=== PATIENT | female | born 1970 | race Caucasian/White ===

== ENCOUNTER → 2021-01-21 | Outpatient (CLI) | payer MEDICAID ==
--- NOTE | 2021-01-22 12:27 | MM ---
Reason for exam: screening (asymptomatic). Last mammogram was performed 15 years and 1 month ago. Physical Findings: A clinical breast exam by your physician is recommended on an annual basis and results should be correlated with mammographic findings. MG Screening Mammo w CAD Bilateral CC and MLO view(s) were taken. No prior studies available for comparison. There are scattered fibroglandular densities. There is no discrete abnormality. ASSESSMENT: Benign, BI-RAD 2 RECOMMENDATION: Routine screening mammogram of both breasts in 1 year.
== END | disposition home or self-care (01) ==
LOC: RADMAMWWP 10:46
PROVIDERS: ATTEND Family Medicine
DX: Z12.39 Encounter for other screening for malignant neoplasm of breast (principal)
CPT/HCPCS: 77067

== ENCOUNTER → 2021-08-05 | Outpatient (CLI) | payer MEDICAID ==
--- NOTE | 2021-08-05 21:55 | US ---
EXAMINATION TYPE: US transvaginal DATE OF EXAM: 08/05/2021 COMPARISON: NONE CLINICAL HISTORY: R10.2 PELVIC PAIN. on and off pelvic pain when moving in certain positions, TECHNIQUE: TV. Transvaginal sonographic images Date of LMP: 08/05/2021 EXAM MEASUREMENTS: Uterus: 11.5 x 7.8 x 6.5 cm Endometrial Stripe: 1.2 cm Right Ovary: 2.9 x 2.0 x 2.6 cm Left Ovary: 3.1 x 2.1 x 2.4 cm 1. Uterus: Anteverted heterogeneous, nabothian cyst = 3.0cm 2. Endometrium: wnl 3. Right Ovary: wnl 4. Left Ovary: simple cyst = 2.6 x 1.3 x 1.6cm 5. Bilateral Adnexa: wnl 6. Posterior cul-de-sac: wnl Heterogeneous uterus with abnormal thickening of the endometrium for proliferative phase of menstrual cycle. Correlate clinically. No free fluid in pelvic cul-de-sac. Both ovaries identified without suspicious adnexal mass. Prominent nabothian cyst in the cervix noted towards end of study. IMPRESSION: As above.
== END | disposition home or self-care (01) ==
LOC: RADUSWWP 16:01
PROVIDERS: ATTEND Obstetrics & Gynecology
DX: R10.2 Pelvic and perineal pain (principal)
CPT/HCPCS: 76830

== ENCOUNTER → 2022-06-27 | Outpatient (CLI) | payer BC ==
[2022-06-27 14:52] LABS: HCT 34.8 % (37.2-46.3); MCH 19.2 pg (27.0-32.0); MCHC 28.7 g/dL (32.0-37.0); MCV 66.8 fL (80.0-97.0); Mean Platelet Volume 9.4 fL (9.5-12.2); NRBC Per 100 WBC 0 /100 WBCS (0.0-0.0); Platelet Count 366 X 10*3/uL (140-440); RBC 5.21 X 10*6/uL (4.10-5.20); RDW 24.2 % (11.5-14.5); WBC 4.39 X 10*3/uL (4.50-10.00)
[2022-06-27 15:41] LABS: Anisocytosis (M) 2+; Basophils # (A) 0.05 X 10*3/uL (0.00-0.10); Basophils % (A) 1.1 %; Eosinophils # (A) 0.04 X 10*3/uL (0.04-0.35); Eosinophils % (A) 0.9 %; Hypochromasia (M) 2+; Immature Grans, Automated 0.2 %; Lymphocytes # (A) 1.84 X 10*3/uL (0.90-5.00); Lymphocytes % (A) 41.9 %; Microcytosis (M) 2+; Monocytes # (A) 0.41 X 10*3/uL (0.20-1.00); Monocytes % (A) 9.3 %; Neutrophils # (A) 2.04 X 10*3/uL (1.80-7.70); Neutrophils % (A) 46.6 %
== END | disposition home or self-care (01) ==
LOC: LABPAT 09:36
PROVIDERS: ATTEND Obstetrics & Gynecology
DX: Z01.818 Encounter for other preprocedural examination (principal); I49.3 Ventricular premature depolarization; R94.31 Abnormal electrocardiogram [ECG] [EKG]
CPT/HCPCS: 85025; 93005

== ENCOUNTER 2022-07-04 05:38 | Day surgery (SDC) | payer BC, MEDICAID ==
--- NOTE | 2022-07-03 12:48 | P.HPOB ---
History of Present Illness H&P Date: 07/03/22 Chief Complaint: menorrhagia and secondary anemia. This patient is a pleasant 51-year-old 2 para 2 female with long- standing menorrhagia and secondary anemia. Patient saw me and she is continuing to have heavy menstrual cycles sometimes 2 a month and was anemic to 9.4 hemoglobin. She's had a previous ultrasound that was normal and an endometrial biopsy was done which was negative as well. She now presents for hysteroscopy D&C and endometrial ablation for treatment. Review of Systems Genitourinary: Reports as per HPI Menstruation: Reports as per HPI, Reports period heavy Past Medical History Past Medical History: Osteoarthritis (OA) Additional Past Medical History / Comment(s): heavy frequent periods; secondary anemia History of Any Multi-Drug Resistant Organisms: None Reported Past Surgical History: Hernia Repair Additional Past Surgical History / Comment(s): D & C, hernia repair as a child Past Anesthesia/Blood Transfusion Reactions: No Reported Reaction Past Psychological History: No Psychological Hx Reported Smoking Status: Never smoker Past Drug Use History: None Reported - Past Family History Mother Family Medical History: Deep Vein Thrombosis (DVT) Medications and Allergies Home Medications Medication Instructions Recorded Confirmed Type Cyanocobalamin [Vitamin B-12] 500 mcg PO DAILY 07/01/22 07/01/22 History Ferrous Sulfate [Feosol] 325 mg PO DAILY 07/01/22 07/01/22 History Loratadine [Claritin] 10 mg PO DAILY 07/01/22 07/01/22 History Allergies Allergy/AdvReac Type Severity Reaction Status Date / Time Penicillins Allergy Rash/Hives Verified 07/01/22 11:13 Exam - OBG Physical Exam Abdomen: bowel sounds normal, no diffuse tenderness, no bruit present, no guarding noted, no hepatomegaly, no splenomegaly, no mass Vulva: both: normal Cervix: no lesion, no discharge Uterus: normal size, normal contour Results Ultrasound was normal last year an endometrial biopsy was negative. Assessment and Plan Assessment: This is a pleasant 51-year-old 2 para 2 female with long-standing menorrhagia and secondary anemia. Patient's evaluation has been negative and she is requesting trial of NovaSure endometrial ablation for treatment. Plan is hysteroscopy, D&C, NovaSure endometrial ablation. Patient understands this surgery and risks and risks of infection, bleeding, possible uterine perforation, and/or thermal injury. All the patient's questions are answered and a written consent is obtained. (1) Menorrhagia Status: Acute Code(s): N92.0 - EXCESSIVE AND FREQUENT MENSTRUATION WITH REGULAR CYCLE SNOMED Code(s): 549104615 (2) Secondary anemia Status: Acute Code(s): D64.9 - ANEMIA, UNSPECIFIED SNOMED Code(s): 484231324
[~2022-07-04 05:38] MED LIST: Pre Op ABX Message 1 EACH MISC MISCELLANE ONE
[2022-07-04] MEDS ORDERED: MIDAZOLAM 2 MG/2 ML VIAL IV PRN (05:47)
[2022-07-04] MEDS ORDERED: LIDOCAINE 1% (10MG/ML) FOR IV START INTRADERMA PRN (05:47)
[2022-07-04] MEDS ORDERED: DEXAMETHASONE SOD PHOSPHATE 4 MG/ML 1 ML VIAL IV ONE (05:47)
[2022-07-04] MEDS ORDERED: LACTATED RINGERS 1,000 ML IV SCH (05:47)
[2022-07-04] MEDS ORDERED: ONDANSETRON 4 MG/2 ML VIAL IVP ONE (05:47)
[2022-07-04] MEDS ORDERED: LACTATED RINGERS 1,000 ML IV ONE (06:12)
[2022-07-04] MEDS ORDERED: SCOPOLAMINE 1 MG/72 HR PATCH TRANSDERM ONE (06:29)
[2022-07-04] MEDS ORDERED: fentaNYL (PF) 50 MCG/ML 2 ML AMP ONE (06:59)
[2022-07-04] MEDS ORDERED: KETOROLAC 15 MG/ML 1 ML VIAL ONE (06:59)
[2022-07-04] MEDS ORDERED: LIDOCAINE 2% INJ 20 MG/ML (2 ML VIAL) ONE (06:59)
[2022-07-04] MEDS ORDERED: MIDAZOLAM 2 MG/2 ML VIAL ONE (06:59)
[2022-07-04] MEDS ORDERED: PROPOFOL 10 MG/ML 20 ML VIAL IV ONE (06:59)
[2022-07-04] MEDS ORDERED: HYDROmorphone 0.5 MG/0.5 ML SYRINGE IVP PRN (07:00)
--- NOTE | 2022-07-04 07:32 | P.OP ---
Date of Procedure: 07/04/22 Preoperative Diagnosis: #1: Menorrhagia. #2: Secondary anemia Postoperative Diagnosis: Same Procedure(s) Performed: #1: Hysteroscopy. #2: Dilation and curettage. #3: NovaSure endometrial ablation Anesthesia: MAC Surgeon: Sanya Rdz Estimated Blood Loss (ml): 20 Urine output (ml): 50 Pathology: other (Uterine curettings) Condition: stable Disposition: PACU Indications for Procedure: Please see dictated H&P for intimate details of this patient's admission. Brief summary this is a pleasant 51-year-old 2 para 2 female long-standing menorrhagia and secondary anemia. Patient's had normal evaluation including ultrasound and endometrial biopsy is now requesting NovaSure endometrial ablation for treatment. Patient does understand the surgery and risks and risks of infection, bleeding, possible uterine perforation, and/or thermal injury. All the patient's questions are answered and a written consent is obtained. Operative Findings: This patient had a normal-appearing endometrial cavity. Description of Procedure: This patient is taken to the operating room where she is laid in the supine position. After the appropriate timeout, patient undergoes general mask anesthesia without incident. With an adequate level of anesthesia she's placed in dorsal lithotomy position. She has a vaginal perineal prep and drape. Examination under anesthesia shows a mid position uterus of normal size. I drain the bladder at this time for 50 mL of clear urine. Weighted speculum was placed in the posterior vagina. The anterior lip of the cervix and grasped with an Allis clamp. Uterus is then sounded to 10 cm. Gentle dilation is then done of the endocervix to allow the hysteroscope easily and the uterine cavity. Hysteroscopy is performed with saline solution. Patient is on her menses so the hysteroscopy is somewhat suboptimal but there does not appear to be any polyps or fibroids. With this done the hysteroscope was removed. Cervix is dilated gently more to allow a small curette easily uterine cavity. A gentle but thorough 4 quadrant curettage is done for adequate sampling. This completed the NovaSure device is then opened. It is set at a length of 6.0 cm. The NovaSure device is seated in place and opens up to a width of 4.6 cm. After passing the cavity integrity test, it is enabled at 152 W setting for 58 seconds. With this done the NovaSure device is removed and appears to be intact. Hysteroscopy is performed again and the uterine cavity appears to be ablated up to the endocervix. At this time the procedure is ended. The Allis clamp and weighted speculum were removed. All counts are correct 3. There are no complications. Patient is awakened from anesthesia and taken recovery room satisfactory condition.
[2022-07-04 07:40] VITALS: TEMP 98
[2022-07-04 08:32] VITALS: PULSE 68; RESP 20
[2022-07-04 08:43] VITALS: BP 119/64
== END 2022-07-04 08:52 | disposition home or self-care (01) ==
LOC: OR 05:38
PROVIDERS: ATTEND Obstetrics & Gynecology
DX: N85.00 Endometrial hyperplasia, unspecified (principal); N92.0 Excessive and frequent menstruation with regular cycle; D64.89 Other specified anemias; M19.90 Unspecified osteoarthritis, unspecified site; Z98.890 Other specified postprocedural states; Z82.49 Family history of ischemic heart disease and other diseases of the circulatory system; Z79.1 Long term (current) use of non-steroidal anti-inflammatories (NSAID); Z79.2 Long term (current) use of antibiotics; Z88.0 Allergy status to penicillin; Z88.1 Allergy status to other antibiotic agents
CPT/HCPCS: 58563; 81025; 88305; J2250; J1100; J2405; J3010; J1885; J2704; J2001

== ENCOUNTER → 2022-08-08 | Outpatient (CLI) | payer BC ==
--- NOTE | 2022-08-11 09:14 | MM ---
Reason for Exam: Screening (asymptomatic). Last mammogram was performed 1 year(s) and 6 month(s) ago. Patient History: Menarche at age 12. First Full-Term at age 30. Late child-bearing (after 30). Last menstrual period: 07/25/2022 Risk Values: Carito 5 year model risk: 1.4%. NCI Lifetime model risk: 12.0%. Prior Study Comparison: 12/22/2005 Bilateral Screening Mammogram, [facility]. 01/21/2021 Bilateral Screening Mammogram, [facility]. Tissue Density: The breast tissue is heterogeneously dense. This may lower the sensitivity of mammography. Findings: Analyzed By CAD. Pattern appears stable from comparison No suspicious groups of microcalcifications, spiculated or lobular masses, architectural distortion or other secondary signs of malignancy are mammographically apparent. Overall Assessment: Benign, BI-RAD 2 Management: Screening Mammogram of both breasts in 1 year. A negative mammogram report should not preclude additional follow up of suspicious palpable abnormalities. Patient should continue monthly self breast exam. A clinical breast exam by your physician is recommended on an annual basis and results should be correlated with mammographic findings. Electronically signed and approved by: Tomás Juan D.O. Radiologis
== END | disposition home or self-care (01) ==
LOC: RADMAMWWP 13:25
PROVIDERS: ATTEND Family Medicine
DX: Z12.31 Encounter for screening mammogram for malignant neoplasm of breast (principal)
CPT/HCPCS: 77063; 77067

== ENCOUNTER → 2023-09-14 | Outpatient (CLI) | payer BC ==
--- NOTE | 2023-09-15 20:45 | MM ---
Reason for Exam: Screening (asymptomatic). Last mammogram was performed 1 year(s) and 2 month(s) ago. Patient History: Menarche at age 12. First Full-Term at age 30. Late child-bearing (after 30). Patient has history of breast feeding. Last menstrual period: 09/05/2023 Risk Values: Carito 5 year model risk: 1.5%. NCI Lifetime model risk: 11.6%. Prior Study Comparison: 12/22/2005 Bilateral Screening Mammogram, [facility]. 01/21/2021 Bilateral Screening Mammogram, [facility]. 08/08/2022 Bilateral MG 3D screening mammo w/cad, [facility]. Tissue Density: The breast tissue is heterogeneously dense. This may lower the sensitivity of mammography. Findings: Analyzed By CAD. Subareolar nodularity on the right MLO view remains unchanged. There is no suspicious group of microcalcifications or new suspicious mass in either breast. Overall Assessment: Benign, BI-RAD 2 Management: Screening Mammogram of both breasts in 1 year. . Patient should continue monthly self-breast exams. A clinical breast exam by your physician is recommended on an annual basis. This exam should not preclude additional follow-up of suspicious palpable abnormalities. Note on Carito scores and lifetime risk: 1. A Carito score greater than 3% is considered moderate risk. If this is the case, consider specialist referral to assess eligibility for a risk reducing agent. 2. If overall lifetime risk for the development of breast cancer is 20% or higher, the patient may qualify for future screening with alternating mammogram and breast MRI. Electronically signed and approved by: Omari Dougherty M.D. Radiologist
== END | disposition home or self-care (01) ==
LOC: RADMAMWWP 16:41
PROVIDERS: ATTEND Family Medicine
DX: Z12.31 Encounter for screening mammogram for malignant neoplasm of breast (principal)
CPT/HCPCS: 77063; 77067

== ENCOUNTER 2025-02-14 20:30 | Observation (INO) | payer BC ==
--- NOTE | 2025-02-14 21:38 | ED ---
GI Bleed HPI - General Chief complaint: GI Bleed Stated complaint: Blood in stool Time Seen by Provider: 02/14/25 20:59 Source: patient Mode of arrival: ambulatory Limitations: no limitations - History of Present Illness Initial comments: 54-year-old female presenting with chief complaint of blood in her stool. Patient reports that she had a bowel movement early this morning and saw bright red blood in the toilet. She thought that she might of had a hemorrhoid and carried on with her day. When she got home from work she had another bowel movement which consisted of diarrhea and bright red blood. States that she has had several bowel movements consisting of bright red blood since then. She reports that for the last 3 days she has had some lower abdominal discomfort which is a constant cramping pain that is low in intensity. No fever. No [place]ks[place] sea or vomiting. No history of diverticulitis or colitis. No blood thinners. No urinary symptoms. - Related Data Home Medications Medication Instructions Recorded Confirmed No Known Home Medications 02/15/25 02/15/25 Allergies Allergy/AdvReac Type Severity Reaction Status Date / Time amoxicillin Allergy Rash/Hives Verified 02/15/25 08:06 Penicillins Allergy Rash/Hives Verified 02/15/25 08:06 Review of Systems ROS Statement: Those systems with pertinent positive or pertinent negative responses have been documented in the HPI. ROS Other: All systems not noted in ROS Statement are negative. Past Medical History Past Medical History: Osteoarthritis (OA) Additional Past Medical History / Comment(s): heavy frequent periods; secondary anemia History of Any Multi-Drug Resistant Organisms: None Reported Past Surgical History: Hernia Repair Additional Past Surgical History / Comment(s): D & C, hernia repair as a child Past Anesthesia/Blood Transfusion Reactions: No Reported Reaction Past Psychological History: No Psychological Hx Reported Smoking Status: Never smoker Past Alcohol Use History: None Reported Past Drug Use History: None Reported - Past Family History Mother Family Medical History: Deep Vein Thrombosis (DVT) General Exam Limitations: no limitations General appearance: alert, in no apparent distress Head exam: Present: atraumatic, normocephalic, normal inspection Eye exam: Present: normal appearance, EOMI Neck exam: Present: normal inspection. Absent: meningismus Respiratory exam: Present: normal lung sounds bilaterally. Absent: respiratory distress, wheezes, rales, rhonchi, stridor Cardiovascular Exam: Present: regular rate, normal rhythm, normal heart sounds. Absent: systolic murmur, diastolic murmur, rubs, gallop, clicks GI/Abdominal exam: Present: soft, tenderness (Lower abdomen). Absent: distended, guarding, rebound, rigid Neurological exam: Present: alert, oriented X3 Psychiatric exam: Present: normal affect, normal mood Skin exam: Present: warm, dry, normal color Course Vital Signs 02/14/25 02/14/25 02/14/25 20:40 21:58 22:37 Temperature 98.1 F Pulse Rate 112 H 87 Respiratory 18 16 Rate Blood Pressure 125/81 95/69 152/73 O2 Sat by Pulse 99 99 Oximetry 02/14/25 02/14/25 02/15/25 22:51 23:47 01:11 Temperature Pulse Rate 105 H 90 95 Respiratory 18 18 18 Rate Blood Pressure 96/64 118/75 107/67 O2 Sat by Pulse 100 100 99 Oximetry 02/15/25 02/15/25 02/15/25 02:50 05:22 06:05 Temperature 98.2 F Pulse Rate 73 70 68 Respiratory 16 18 16 Rate Blood Pressure 105/67 107/60 105/62 O2 Sat by Pulse 97 98 99 Oximetry 02/15/25 02/15/25 02/15/25 07:43 09:00 10:00 Temperature Pulse Rate 77 88 71 Respiratory 18 18 18 Rate Blood Pressure 108/60 122/76 113/63 O2 Sat by Pulse 98 98 98 Oximetry 02/15/25 02/15/25 02/15/25 11:00 12:00 16:00 Temperature 98.2 F Pulse Rate 71 90 78 Respiratory 18 18 18 Rate Blood Pressure 108/63 117/70 115/70 O2 Sat by Pulse 98 98 99 Oximetry Medical Decision Making - Medical Decision Making Was pt. sent in by a medical professional or institution (, PA, SAND CONDITIONER, urgent care, hospital, or detention...) When possible be specific @ -No Did you speak to anyone other than the patient for history (EMS, parent, family, police, friend...)? What history was obtained from this source @ -No Did you review nursing and triage notes (agree or disagree)? Why? @ -I reviewed and agree with nursing and triage notes Were old charts reviewed (outside hosp., previous admission, EMS record, old EKG, old radiological studies, urgent care reports/EKG's, detention records)? Report findings @ -No old charts were reviewed Differential Diagnosis (chest pain, altered mental status, abdominal pain women, abdominal pain men, vaginal bleeding, weakness, fever, dyspnea, syncope, headache, dizziness, GI bleed, back pain, seizure, CVA, palpatations, mental health, musculoskeletal)? @ -MDM Differential GI Bleed: Esophageal varices, aortoenteric fistula, Minerva-Raines, gastritis, peptic ulcer disease, diverticulosis, inflammatory bowel disease, hemorrhoids, fissure, colitis, malignancy, Meckel’s diverticulum… this is not meant to be an all- inclusive list. EKG interpreted by me (3pts min.). @ -As above X-rays interpreted by me (1pt min.). @ -None done CT interpreted by me (1pt min.). @ -CT shows multiple uterine fibroids largest cyst within the fundus. Diverticulosis without acute diverticulitis. No suspicious abnormality to account for blood within the bowel. Malpositioned malrotated right kidney. Nonobstructing 0.5 cm left renal stone U/S interpreted by me (1pt. min.). @ -None done What testing was considered but not performed or refused? (CT, X-rays, U/S, labs)? Why? @ -None What meds were considered but not given or refused? Why? @ -None Did you discuss the management of the patient with other professionals (professionals i.e. , PA, SAND CONDITIONER, lab, RT, psych nurse, social worker school, environmental sampling technician, teacher, aoc aadc operations staff officer, foster care case manager)? Give summary @ -Spoke with Dr. Ocampo who accepts admission Was smoking cessation discussed for >3mins.? @ -No Was critical care preformed (if so, how long)? @ -No Were there social determinants of health that impacted care today? How? (Homelessness, low income, unemployed, alcoholism, drug addiction, transportation, low edu. Level, literacy, decrease access to med. care, prison, rehab)? @ -No Was there de-escalation of care discussed even if they declined (Discuss DNR or withdrawal of care, Hospice)? DNR status @ -No What co-morbidities impacted this encounter? (DM, HTN, Smoking, COPD, CAD, Cancer, CVA, ARF, Chemo, Hep., AIDS, mental health diagnosis, sleep apnea, morbid obesity)? @ -None Was patient admitted / discharged? Hospital course, mention meds given and route, prescriptions, significant lab abnormalities, going to OR and other pe rtinent info. @ -54-year-old female presenting with chief complaint of rectal bleeding that started tonight. History and physical examination are conducted. Lab work shows no leukocytosis or anemia. Hemoglobin stable at 12. Lactic acid 3.4, patient is receiving IV fluids. CT shows diverticulosis without diverticulitis as well as uterine fibroids. Patient did have a bowel movement with very large amount of blood while here. He was also feeling like she was about to pass out. Blood pressure has been stable. Patient will be admitted for evaluation by GI and hemoglobin monitoring. She is agreeable with this plan. I discussed this case with my attending Dr. [place] Undiagnosed new problem with uncertain prognosis? @ -No Drug Therapy requiring intensive monitoring for toxicity (Heparin, Nitro, Insulin, Cardizem)? @ -No Were any procedures done? @ -No Diagnosis/symptom? @ -GI bleed Acute, or Chronic, or Acute on Chronic? @ -Acute Uncomplicated (without systemic symptoms) or Complicated (systemic symptoms)? @ -Complicated Side effects of treatment? @ -No Exacerbation, Progression, or Severe Exacerbation? @ -No Poses a threat to life or bodily function? How? (Chest pain, [place], [place], pneumonia, PE, COPD, DKA, ARF, appy, cholecystitis, CVA, Diverticulitis, Homicidal, Suicid al, threat to staff... and all critical care pts) @ -Yes - Lab Data Result diagrams: 02/15/25 05:32 02/15/25 05:32 Lab Results 02/14/25 02/14/25 02/14/25 Range/Units 21:51 21:51 21:51 WBC 8.03 (4.50-10.00) 10*3/uL RBC 4.26 (4.10-5.20) 10*6/uL Hgb 12.0 (12.0-15.0) g/dL Hct 35.9 L (37.2-46.3) % MCV 84.3 (80.0-97.0) fL MCH 28.2 (27.0-32.0) pg MCHC 33.4 (32.0-37.0) g/dL Plt Count 312 (140-440) 10*3/uL MPV 9.6 (9.5-12.2) fL Immature Gran % (Auto) 0.4 % Neutrophils % 47.1 % Lymphocytes % 45.1 % Monocytes % 5.1 % Eosinophils % 1.6 % Basophils % 0.7 % Immature Gran # 0.03 (0.00-0.04) 10*3/uL Neutrophils # 3.78 (1.80-7.70) 10*3/uL Lymphocytes # 3.62 (0.90-5.00) 10*3/uL Monocytes # 0.41 (0.20-1.00) 10*3/uL Eosinophils # 0.13 (0.04-0.35) 10*3/uL Basophils # 0.06 (0.00-0.10) 10*3/uL PT 10.6 (10.0-12.5) sec INR 0.9 (<1.2) APTT 20.1 L (22.0-30.0) sec Sodium 134 L (137-145) mmol/L Potassium 3.5 (3.5-5.1) mmol/L Chloride 100 (98-107) mmol/L Carbon Dioxide 25 (22-30) mmol/L Anion Gap 9 mmol/L BUN 20 H (7-17) mg/dL Creatinine 0.62 (0.52-1.04) mg/dL Est GFR (CKD-EPI)AfAm >90 (>60 ml/min/1.73 sqM) Est GFR (CKD-EPI)NonAf >90 (>60 ml/min/1.73 sqM) Glucose 160 H (74-99) mg/dL POC Glucose (mg/dL) (70-110) mg/dL POC Glu Power Truck Driver ID Lactic Ac Sepsis Rflx Plasma Lactic Acid Jose R (0.7-2.0) mmol/L Calcium 9.2 (8.4-10.2) mg/dL Total Bilirubin 1.1 (0.2-1.3) mg/dL AST 22 (14-36) U/L ALT 19 (4-34) U/L Alkaline Phosphatase 49 (38-126) U/L Total Protein 6.7 (6.3-8.2) g/dL Albumin 3.8 (3.5-5.0) g/dL Blood Type Blood Type Recheck Bld Type Recheck Status Antibody Screen Spec Expiration Date 02/14/25 02/14/25 02/14/25 Range/Units 21:51 21:51 22:32 WBC (4.50-10.00) 10*3/uL RBC (4.10-5.20) 10*6/uL Hgb (12.0-15.0) g/dL Hct (37.2-46.3) % MCV (80.0-97.0) fL MCH (27.0-32.0) pg MCHC (32.0-37.0) g/dL Plt Count (140-440) 10*3/uL MPV (9.5-12.2) fL Immature Gran % (Auto) % Neutrophils % % Lymphocytes % % Monocytes % % Eosinophils % % Basophils % % Immature Gran # (0.00-0.04) 10*3/uL Neutrophils # (1.80-7.70) 10*3/uL Lymphocytes # (0.90-5.00) 10*3/uL Monocytes # (0.20-1.00) 10*3/uL Eosinophils # (0.04-0.35) 10*3/uL Basophils # (0.00-0.10) 10*3/uL PT (10.0-12.5) sec INR (<1.2) APTT (22.0-30.0) sec Sodium (137-145) mmol/L Potassium (3.5-5.1) mmol/L Chloride (98-107) mmol/L Carbon Dioxide (22-30) mmol/L Anion Gap mmol/L BUN (7-17) mg/dL Creatinine (0.52-1.04) mg/dL Est GFR (CKD-EPI)AfAm (>60 ml/min/1.73 sqM) Est GFR (CKD-EPI)NonAf (>60 ml/min/1.73 sqM) Glucose (74-99) mg/dL POC Glucose (mg/dL) (70-110) mg/dL POC Glu Power Truck Driver ID Lactic Ac Sepsis Rflx Y Plasma Lactic Acid Jose R 3.4 H* (0.7-2.0) mmol/L Calcium (8.4-10.2) mg/dL Total Bilirubin (0.2-1.3) mg/dL AST (14-36) U/L ALT (4-34) U/L Alkaline Phosphatase (38-126) U/L Total Protein (6.3-8.2) g/dL Albumin (3.5-5.0) g/dL Blood Type O Positive Blood Type Recheck O Pos Bld Type Recheck Status No Antibody Screen NEGATIVE Spec Expiration Date 02/17/2025 - 235002/14/25 Range/Units 22:46 WBC (4.50-10.00) 10*3/uL RBC (4.10-5.20) 10*6/uL Hgb (12.0-15.0) g/dL Hct (37.2-46.3) % MCV (80.0-97.0) fL MCH (27.0-32.0) pg MCHC (32.0-37.0) g/dL Plt Count (140-440) 10*3/uL MPV (9.5-12.2) fL Immature Gran % (Auto) % Neutrophils % % Lymphocytes % % Monocytes % % Eosinophils % % Basophils % % Immature Gran # (0.00-0.04) 10*3/uL Neutrophils # (1.80-7.70) 10*3/uL Lymphocytes # (0.90-5.00) 10*3/uL Monocytes # (0.20-1.00) 10*3/uL Eosinophils # (0.04-0.35) 10*3/uL Basophils # (0.00-0.10) 10*3/uL PT (10.0-12.5) sec INR (<1.2) APTT (22.0-30.0) sec Sodium (137-145) mmol/L Potassium (3.5-5.1) mmol/L Chloride (98-107) mmol/L Carbon Dioxide (22-30) mmol/L Anion Gap mmol/L BUN (7-17) mg/dL Creatinine (0.52-1.04) mg/dL Est GFR (CKD-EPI)AfAm (>60 ml/min/1.73 sqM) Est GFR (CKD-EPI)NonAf (>60 ml/min/1.73 sqM) Glucose (74-99) mg/dL POC Glucose (mg/dL) 132 H (70-110) mg/dL POC Glu Power Truck Driver ID Sarita Brunner Lactic Ac Sepsis Rflx Plasma Lactic Acid Jose R (0.7-2.0) mmol/L Calcium (8.4-10.2) mg/dL Total Bilirubin (0.2-1.3) mg/dL AST (14-36) U/L ALT (4-34) U/L Alkaline Phosphatase (38-126) U/L Total Protein (6.3-8.2) g/dL Albumin (3.5-5.0) g/dL Blood Type Blood Type Recheck Bld Type Recheck Status Antibody Screen Spec Expiration Date Disposition Clinical Impression: GI bleed Disposition: ADMITTED IP TO THIS HOSP Condition: Fair Time of Disposition: 23:51
[2025-02-14] MEDS: SODIUM CHLORIDE 0.9% 1,000 ML IV STA (21:52)
[2025-02-14 22:13] LABS: Basophils # (A) 0.06 10*3/uL (0.00-0.10); Basophils % (A) 0.7 %; Eosinophils # (A) 0.13 10*3/uL (0.04-0.35); Eosinophils % (A) 1.6 %; HCT 35.9 % (37.2-46.3); Lymphocytes # (A) 3.62 10*3/uL (0.90-5.00); Lymphocytes % (A) 45.1 %; MCH 28.2 pg (27.0-32.0); MCHC 33.4 g/dL (32.0-37.0); MCV 84.3 fL (80.0-97.0); Mean Platelet Volume 9.6 fL (9.5-12.2); Monocytes # (A) 0.41 10*3/uL (0.20-1.00); Monocytes % (A) 5.1 %; Neutrophils # (A) 3.78 10*3/uL (1.80-7.70); Neutrophils % (A) 47.1 %; Platelet Count 312 10*3/uL (140-440); RBC 4.26 10*6/uL (4.10-5.20); RDW 14.8 % (11.5-14.5); WBC 8.03 10*3/uL (4.50-10.00)
[2025-02-14 22:21] LABS: ALT 19 U/L (4-34); AST 22 U/L (14-36); African American GFR (CKD) >90 (>60 ml/min/1.73 sqM); Albumin 3.8 g/dL (3.5-5.0); Alkaline Phosphatase 49 U/L (38-126); Anion Gap 9 mmol/L; Blood Urea Nitrogen 20 mg/dL (7-17); Calcium 9.2 mg/dL (8.4-10.2); Carbon Dioxide 25 mmol/L (22-30); Chloride 100 mmol/L (98-107); Glucose 160 mg/dL (74-99); Non-African American GFR(CKD) >90 (>60 ml/min/1.73 sqM); Potassium 3.5 mmol/L (3.5-5.1); Sodium 134 mmol/L (137-145); Total Bilirubin 1.1 mg/dL (0.2-1.3); Total Protein 6.7 g/dL (6.3-8.2)
[2025-02-14 22:40] LABS: INR 0.9 (<1.2); Prothrombin Time 10.6 sec (10.0-12.5)
[2025-02-14 22:49] LABS: Glucose,Whole Blood 132 mg/dL (70-110)
--- NOTE | 2025-02-14 22:57 | CT ---
EXAMINATION TYPE: CT abdomen pelvis w con DATE OF EXAM: 02/14/2025 10:13 PM COMPARISON: None. CLINICAL INDICATION: Female, 54 years old with history of pain, Patient states blood in stool TECHNIQUE: Axial images were obtained from above the diaphragm to the pubic rami in the axial plane a t 5 mm thick sections. Reconstructed images are reviewed on the computer in the coronal plane. CONTRAST: 100 mL of Isovue 300. Study performed without Oral Contrast DLP: 686.8 mGycm, Automated exposure control for dose reduction was used. FINDINGS: Limited CT sections are obtained the lung bases. The lung bases are clear. CT ABDOMEN: Liver: Normal Spleen: Normal Pancreas: Normal Adrenal glands: The adrenal glands are normal. Gallbladder: Normal Kidneys: No masses are evident. No hydronephrosis is present. There is a 4.0 cm cyst on the posteri or lateral right kidney. There is some malrotation of the right kidney and malpositioning. There is a nonobstructing 0.5 cm upper mid left renal calcification Delayed images were obtained through the k idneys, which remain unremarkable. Aorta: Normal Inferior vena cava: Normal. CT PELVIS: Loops of bowel within the abdomen and pelvis are normal. This study is lateral contrast Limited b owel evaluation. Multiple diverticuli within the sigmoid colon. No acute inflammatory changes adjacen t to suggest acute diverticulitis. Appendix: Normal as visualized. Urinary bladder: Decompressed limiting evaluation Genitourinary structures: Uterus appears bulky. Several fibroids are likely present. Adnexa appear no rmal. Follicles are present bilaterally. Osseous structures: No suspicious lytic or sclerotic lesions. IMPRESSION: 1. Multiple uterine fibroids. Largest cyst within the fundus. 2. Diverticulosis without acute diverticulitis. 3. No suspicious bowel abnormality to account for blood within the bowel. 4. Malposition Malrotated right kidney. 5. Nonobstructing 0.5 cm left renal stone [facility], Workstation: [facility], 02/14/2025 10:55 PM
[2025-02-14] MEDS: SODIUM CHLORIDE 0.9% 1,000 ML IV ONE (22:59)
[2025-02-14 23:28] LABS: Partial Thromboplastin Time 20.1 sec (22.0-30.0)
[2025-02-14] MEDS ORDERED: NALOXONE 0.4 MG/ML 1 ML VIAL IV PRN (23:49)
--- NOTE | 2025-02-15 00:31 | P.HPIM ---
History of Present Illness H&P Date: 02/14/25 History of present illness; Patient is a 54-year-old female presenting with chief complaint of rectal bleeding. Patient states symptoms began this morning with blood-streaked bowel movement with blood clots. Later in the day she states she had explosive diarrhea every 30 minutes consisting of bright red blood. Prior to this, she states she has been straining more frequently for the last 2 weeks, and the last 3 days having crampy generalized lower abdominal pain. She denies fever, nausea, vomiting, weakness or dizziness. No history of similar occurrences. She does states she takes naproxen 2 pills daily for the last 3 months for her arthritis. No history of diverticulitis or colitis. No blood thinners. No urinary symptoms. Denies alcohol use. Patient states she does have a history of fibroid ablation, however does not feel today's bleeding is vaginal in nature. Last period in August 2024. No other complaints at this time. Spoke with the ER physician, patient admission was accepted by internal medicine service for treatment. REVIEW OF SYSTEMS: Pertinent positives and negatives noted in HPI. PHYSICAL EXAMINATION: Vitals reviewed GENERAL: Resting comfortably in bed. EYES: PERRL, no scleral injection or icterus. No vision loss HENT: Normocephalic, atraumatic, hearing grossly intact, moist mucous membranes NECK: No tracheal deviation, full range of motion. CARDIOVASCULAR: S1 and S2 present. No murmurs, rubs, or gallops. PULMONARY: Chest is clear to auscultation, no wheezing, rhonchi, or crackles. ABDOMEN: Soft, nontender, nondistended. No palpable organomegaly. MUSCULOSKELETAL: No apparent joint swelling and deformities. EXTREMITIES: No apparent cyanosis, clubbing. No pedal edema. NEUROLOGICAL: Alert and oriented. Gross neurological examination with no apparent focal deficits. SKIN: No apparent rashes. ER FINDINGS: Labs significant for hemoglobin 12.0, sodium 134, potassium 3.5, BUN 20, creatinine 0.62, glucose 160, lactic acid 3.4 CT abdomen/pelvis consistent with multiple uterine fibroids, largest cyst in the fundus. Diverticulosis without diverticulitis, no suspicious bowel abnormality. Malpositioned malrotated right kidney nonobstructive 0.5 cm left renal stone. Assessment and Plan: In summary, patient is a 54-year-old female presenting with chief complaint of rectal bleeding. #Acute lower GI bleed, likely diverticular #Lactic acidosis - Hemdynamically stable at this time - Initial hemoglobin 12.0, lactic acid 3.4, BUN 20, creatinine 0.62 - Give pRBC if Hgb <7 or 4g drop in 24h - Begin normal saline at 130 mL/h Begin Zofran, IV Protonix 40 Mg twice daily, for possible upper GI bleed - CBC q6hr, blood type and screen ordered Hold blood thinners - N.p.o. after midnight - GI consulted Chronic Medical Conditions #Arthritis Hold NSAIDs Uterine fibroids - No recent vaginal bleeding DVT ppx: Early ambulation Code status: Full code F: IV fluids E: Replete as needed N: N.p.o. after midnight A: Ambulatory Anticipated discharge place: Home Anticipated discharge time: 1 to 2 days Dictation was produced using [employer] dictation software. Please excuse any gra mmatical, word or spelling errors. I have seen and evaluated the patient today. Discussed with the resident and agree with the residents finding and plan as documented in the resident's note. Changes highlighted in blue font. Past Medical History Past Medical History: Osteoarthritis (OA) Additional Past Medical History / Comment(s): heavy frequent periods; secondary anemia History of Any Multi-Drug Resistant Organisms: None Reported Past Surgical History: Hernia Repair Additional Past Surgical History / Comment(s): D & C, hernia repair as a child Past Anesthesia/Blood Transfusion Reactions: No Reported Reaction Past Psychological History: No Psychological Hx Reported Smoking Status: Never smoker Past Alcohol Use History: None Reported Past Drug Use History: None Reported - Past Family History Mother Family Medical History: Deep Vein Thrombosis (DVT) Medications and Allergies Home Medications Medication Instructions Recorded Confirmed Type Cyanocobalamin [Vitamin B-12] 500 mcg PO DAILY 07/01/22 07/01/22 History Ferrous Sulfate [Feosol] 325 mg PO DAILY 07/01/22 07/01/22 History Loratadine [Claritin] 10 mg PO DAILY 07/01/22 07/01/22 History Ibuprofen [Motrin] 600 mg PO Q6HR PRN #30 tab 07/04/22 Rx Allergies Allergy/AdvReac Type Severity Reaction Status Date / Time amoxicillin Allergy Rash/Hives Verified 02/14/25 20:42 Penicillins Allergy Rash/Hives Verified 02/14/25 20:42 Physical Exam Vitals: Vital Signs Temp Pulse Resp BP Pulse Ox 02/14/25 23:47 90 18 118/75 100 02/14/25 22:51 105 H 18 96/64 100 02/14/25 22:37 87 16 152/73 99 02/14/25 21:58 95/69 02/14/25 20:40 98.1 F 112 H 18 125/81 99 Intake and Output 02/14/25 02/14/25 02/15/25 14:59 22:59 06:59 Other: Weight 68.039 kg Results CBC & Chem 7: 02/14/25 21:51 02/14/25 21:51 Labs: Abnormal Lab Results - Last 24 Hours (Table) 02/14/25 02/14/25 02/14/25 Range/Units 21:51 21:51 21:51 Hct 35.9 L (37.2-46.3) % APTT 20.1 L (22.0-30.0) sec Sodium 134 L (137-145) mmol/L BUN 20 H (7-17) mg/dL Glucose 160 H (74-99) mg/dL POC Glucose (mg/dL) (70-110) mg/dL Plasma Lactic Acid Jose R (0.7-2.0) mmol/L 02/14/25 02/14/25 Range/Units 21:51 22:46 Hct (37.2-46.3) % APTT (22.0-30.0) sec Sodium (137-145) mmol/L BUN (7-17) mg/dL Glucose (74-99) mg/dL POC Glucose (mg/dL) 132 H (70-110) mg/dL Plasma Lactic Acid Jose R 3.4 H* (0.7-2.0) mmol/L
[2025-02-15] MEDS: PANTOPRAZOLE 40 MG/10 ML VIAL IVP SCH (00:51)
[2025-02-15] MEDS: SODIUM CHLORIDE 0.9% 1,000 ML IV SCH (00:52)
[2025-02-15 07:06] LABS: ALT 14 U/L (4-34); AST 16 U/L (14-36); African American GFR (CKD) >90 (>60 ml/min/1.73 sqM); Albumin 2.9 g/dL (3.5-5.0); Alkaline Phosphatase 38 U/L (38-126); Anion Gap 5 mmol/L; Blood Urea Nitrogen 15 mg/dL (7-17); Calcium 7.6 mg/dL (8.4-10.2); Carbon Dioxide 24 mmol/L (22-30); Chloride 105 mmol/L (98-107); Glucose 108 mg/dL (74-99); Non-African American GFR(CKD) >90 (>60 ml/min/1.73 sqM); Potassium 4.6 mmol/L (3.5-5.1); Sodium 134 mmol/L (137-145); Total Bilirubin 0.9 mg/dL (0.2-1.3); Total Protein 5.4 g/dL (6.3-8.2)
[2025-02-15 08:03] LABS: Basophils # (A) 0.03 10*3/uL (0.00-0.10); Basophils % (A) 0.5 %; Eosinophils # (A) 0.03 10*3/uL (0.04-0.35); Eosinophils % (A) 0.5 %; HCT 28.5 % (37.2-46.3); Lymphocytes # (A) 1.36 10*3/uL (0.90-5.00); Lymphocytes % (A) 21.5 %; MCH 28.7 pg (27.0-32.0); MCHC 33.3 g/dL (32.0-37.0); MCV 86.1 fL (80.0-97.0); Mean Platelet Volume 10.4 fL (9.5-12.2); Monocytes # (A) 0.32 10*3/uL (0.20-1.00); Monocytes % (A) 5.1 %; Neutrophils # (A) 4.56 10*3/uL (1.80-7.70); Neutrophils % (A) 72.1 %; Platelet Count 220 10*3/uL (140-440); RBC 3.31 10*6/uL (4.10-5.20); RDW 14.7 % (11.5-14.5); WBC 6.32 10*3/uL (4.50-10.00)
[2025-02-15 08:09] LABS: HGB 9.5 g/dL (12.0-15.0)
[2025-02-15] MEDS: ACETAMINOPHEN TAB 325 MG TAB PO PRN (09:10)
[2025-02-15] MEDS: ONDANSETRON 4 MG/2 ML VIAL IVP PRN (10:01)
--- NOTE | 2025-02-15 10:51 | P.CONS ---
History of Present Illness - Reason for Consult Consult date: 02/15/25 GI bleed Requesting physician: Brenden Narvaez - Chief Complaint Rectal bleeding - History of Present Illness This a pleasant 54-year-old female with no significant past medical history other than anemia secondary to heavy periods who had presented to the emergency department yesterday evening with complaints of rectal bleeding. Patient states yesterday morning she had a small bowel movement with some maroon and dark- colored clots. She had no further bleeding throughout the day until she got home. Around 5 PM she states she felt the urge to have a bowel movement and when she went to the bathroom she had bright red blood per rectum. States that she had about 6 episodes about every 1/2 hour. She came to the emergency department around 8 PM and then had a another bloody bowel movement around 9 PM and nothing since then. She denies any abdominal pain she is having some nausea and was having some lightheadedness but no vomiting. States last week she was having some lower cramping but thought that was secondary to gas. States she has never had real regular bowel movements she does have some loose stools and at times constipation. She denies similar symptoms in the past. She had a Cologuard done at age 51 which was normal but has not had a colonoscopy in the past. She has not had any further bleeding. She did have a CAT scan of the abdomen and pelvis that showed multiple diverticuli without any evidence of diverticulitis and no suspicious bowel abnormality to account for blood within the bowel. She denies any fevers or chills. Hemoglobin on admission was 12.0 with a drop to 9.5 today. She denies any anticoagulation use. Review of Systems REVIEW OF SYSTEMS: CARDIOPULMONARY: No chest pain or shortness of breath. Gastrointestinal: No abdominal pain. Nausea without vomiting. No hematemesis, coffee-ground emesis. Rectal bleeding x 6-7 episodes, now resolved. GENITOURINARY: No dysuria or hematuria. No vaginal bleeding. MUSCULOSKELETAL: Reports normal range of motion. SKIN: No rashes. No jaundice. ENDOCRINE: No chills, fevers. No excessive weight gain or loss. No polydipsia or polyuria. PSYCHIATRIC: Unremarkable. NEUROLOGY: No change in mental status. Denies dizziness, headache. ENT: Vision unremarkable. CONSTITUTIONAL: No recent weight loss. No fever, chills, night sweats. Past Medical History Past Medical History: Osteoarthritis (OA) Additional Past Medical History / Comment(s): heavy frequent periods; secondary anemia History of Any Multi-Drug Resistant Organisms: None Reported Past Surgical History: Hernia Repair Additional Past Surgical History / Comment(s): D & C, hernia repair as a child Past Anesthesia/Blood Transfusion Reactions: No Reported Reaction Past Psychological History: No Psychological Hx Reported Smoking Status: Never smoker Past Alcohol Use History: None Reported Past Drug Use History: None Reported - Past Family History Mother Family Medical History: Deep Vein Thrombosis (DVT) Medications and Allergies Home Medications Medication Instructions Recorded Confirmed Type No Known Home Medications 02/15/25 02/15/25 History Allergies Allergy/AdvReac Type Severity Reaction Status Date / Time amoxicillin Allergy Rash/Hives Verified 02/15/25 08:06 Penicillins Allergy Rash/Hives Verified 02/15/25 08:06 Physical Exam Vitals: Vital Signs Temp Pulse Resp BP Pulse Ox 02/15/25 07:43 77 18 108/60 98 02/15/25 06:05 98.2 F 68 16 105/62 99 02/15/25 05:22 70 18 107/60 98 02/15/25 02:50 73 16 105/67 97 02/15/25 01:11 95 18 107/67 99 02/14/25 23:47 90 18 118/75 100 02/14/25 22:51 105 H 18 96/64 100 02/14/25 22:37 87 16 152/73 99 02/14/25 21:58 95/69 02/14/25 20:40 98.1 F 112 H 18 125/81 99 Intake and Output 02/14/25 02/15/25 02/15/25 22:59 06:59 14:59 Other: Weight 68.039 kg General appearance: The patient is alert, oriented, appears in no acute distress. HET: Head is normocephalic and atraumatic. Conjunctiva pink. Sclera anicteric. Neck: Supple without lymphadenopathy. Trachea midline. Heart: Regular. Lungs: Equal expansion, normal respiratory effort. Abdomen: Soft, mid lower tenderness, nondistended. Skin: No rashes. No jaundice. Extremities: Normal skin color and turgor. No pedal edema. Neurological: No focal deficits. Alert and oriented x3. Results CBC & Chem 7: 02/15/25 05:32 02/15/25 05:32 Labs: Abnormal Lab Results - Last 24 Hours (Table) 02/14/25 02/14/25 02/14/25 Range/Units 21:51 21:51 21:51 RBC (4.10-5.20) 10*6/uL Hgb (12.0-15.0) g/dL Hct 35.9 L (37.2-46.3) % Eosinophils # (0.04-0.35) 10*3/uL APTT 20.1 L (22.0-30.0) sec Sodium 134 L (137-145) mmol/L BUN 20 H (7-17) mg/dL Creatinine (0.52-1.04) mg/dL Glucose 160 H (74-99) mg/dL POC Glucose (mg/dL) (70-110) mg/dL Plasma Lactic Acid Jose R (0.7-2.0) mmol/L Calcium (8.4-10.2) mg/dL Total Protein (6.3-8.2) g/dL Albumin (3.5-5.0) g/dL 02/14/25 02/14/25 02/15/25 Range/Units 21:51 22:46 01:34 RBC (4.10-5.20) 10*6/uL Hgb (12.0-15.0) g/dL Hct (37.2-46.3) % Eosinophils # (0.04-0.35) 10*3/uL APTT (22.0-30.0) sec Sodium (137-145) mmol/L BUN (7-17) mg/dL Creatinine (0.52-1.04) mg/dL Glucose (74-99) mg/dL POC Glucose (mg/dL) 132 H (70-110) mg/dL Plasma Lactic Acid Jose R 3.4 H* 0.6 L (0.7-2.0) mmol/L Calcium (8.4-10.2) mg/dL Total Protein (6.3-8.2) g/dL Albumin (3.5-5.0) g/dL 02/15/25 02/15/25 Range/Units 05:32 05:32 RBC 3.31 L (4.10-5.20) 10*6/uL Hgb 9.5 L D (12.0-15.0) g/dL Hct 28.5 L (37.2-46.3) % Eosinophils # 0.03 L (0.04-0.35) 10*3/uL APTT (22.0-30.0) sec Sodium 134 L (137-145) mmol/L BUN (7-17) mg/dL Creatinine 0.45 L (0.52-1.04) mg/dL Glucose 108 H (74-99) mg/dL POC Glucose (mg/dL) (70-110) mg/dL Plasma Lactic Acid Jose R (0.7-2.0) mmol/L Calcium 7.6 L (8.4-10.2) mg/dL Total Protein 5.4 L (6.3-8.2) g/dL Albumin 2.9 L (3.5-5.0) g/dL Comments: CT abdomen pelvis with contrast reports multiple uterine fibroids. Largest cyst within the fundus. Diverticulosis without acute diverticulitis. No suspicious bowel abnormality to account for blood within the bowel. Malpositioned malrotated right kidney. Nonobstructing 0.5 cm left renal stone. Assessment and Plan (1) Hematochezia Narrative/Plan: 54-year-old female presenting with acute onset of painless rectal bleeding x 6-7 episodes yesterday. No previous history of GI bleed. No anticoagulation. CT evidence of multiple diverticuli without diverticulitis with normal colon. Likely dealing with a diverticular bleed. Patient's not had a prior colonoscopy did have a Cologuard at age 51 which was normal. Continue with observation, IV hydration and clear liquid diet. Monitor for further bleeding. Current Visit: Yes Status: Acute Code(s): K92.1 - MELENA SNOMED Code(s): 769886041 (2) Rectal bleeding Current Visit: Yes Status: Acute Code(s): K62.5 - HEMORRHAGE OF ANUS AND RECTUM SNOMED Code(s): 42024627 (3) Acute blood loss anemia Current Visit: Yes Status: Acute Code(s): D62 - ACUTE POSTHEMORRHAGIC ANEMIA SNOMED Code(s): 939953859 Plan: 1. Continue symptomatic and supportive care 2. Patient may have clear liquid diet, n.p.o. after midnight except for bowel prep 3. Protonix 40 mg daily for GI prophylaxis 4. Daily CBC, transfuse for hemoglobin less than 7 5. Start bowel prep tomorrow morning as ordered 6. Plan for colonoscopy tomorrow late afternoon Thank you for this consultation, we will continue to follow. Dr. Stefan Lopez I agree with the dictator's note, documented as a scribe by Nilda Starr.
--- NOTE | 2025-02-15 16:52 | P.PN ---
Subjective Progress Note Date: 02/15/25 Hospital Course: A 54-year-old female with past medical history of chronic arthritis and uterine fibroids, who presented with blood-streaked bowel movements with blood clots that started on 02/14/2025 in the morning. Later in the day she states she had explosive diarrhea every 30 minutes consisting of bright red blood. Prior to this, she states she has been straining more frequently for the last 2 weeks, and the last 3 days having crampy generalized lower abdominal pain. She denies fever, nausea, vomiting, weakness or dizziness. No history of similar occurrences. She does states she takes naproxen 2 pills daily for the last 3 months for her arthritis. No history of diverticulitis or colitis. No blood thinners. No urinary symptoms. Denies alcohol use. Patient states she does have a history of fibroid ablation, however does not feel today's bleeding is vaginal in nature. Last period in August 2024. No other complaints at this time. Labs significant for hemoglobin 12.0, sodium 134, potassium 3.5, BUN 20, creatinine 0.62, glucose 160, lactic acid 3.4 CT abdomen/pelvis consistent with multiple uterine fibroids, largest cyst in the fundus. Diverticulosis without diverticulitis, no suspicious bowel abnormality. Malpositioned malrotated right kidney nonobstructive 0.5 cm left renal stone. Admitted initially as observation with GI consult in place. Patient's hemoglob in dropped from 12.0-9.5, GI plans colonoscopy on 02/16, patient was switched to inpatient due to acute blood loss anemia and need for colonoscopy. 02/15, no bowel movement since 02/14 9 PM. Denies any abdominal pain. [place] a little nauseous this morning Pertinent positives and negatives as discussed above, a complete review of systems was performed and all other systems are negative. Vitals Signs Reviewed. General: [nontoxic], [no distress], [appears at stated age] Derm: [warm], [dry] Head: [atraumatic], [normocephalic], [symmetric] Eyes: [EOMI], [no lid lag], [anicteric sclera] Mouth: [no lip lesion], [mucus membranes moist] Cardiovascular: [S1S2 reg], [no murmur] Lungs: [CTA bilateral], [no rhonchi, no rales] , [no accessory muscle use] Abdominal: [soft], [ nontender to palpation], [no guarding], [no appreciable organomegaly] Ext: [no gross muscle atrophy], [no edema], [no contractures] Neuro: [ CN II-XI grossly intact], [no focal neuro deficits] Psych: [Alert], [oriented], [appropriate affect] Assessment and Plan: Acute blood loss anemia secondary to lower GI bleed Lactic acidosis, resolved -GI consulted, appreciate recommendations - Continue to monitor CBC daily, transfuse for hemoglobin less than 7 - Continue IV hydration with NS at 130 cc/h - Continue Zofran as needed, IV Protonix 40 mg twice daily for GI prophylaxis - N.p.o. after midnight, plan for colonoscopy on 02/16 Chronic arthritis - Holding NSAIDs Uterine fibroids - No recent vaginal bleeding I have reviewed the following strategic consultant notes: GI I have reviewed the results of the following tests: CBC and BMP I have ordered the following tests: CBC daily, monitor for worsening anemia I have discussed the care of this patient with the following independent historian: RN I have independently interpreted the following test below: As above I have discussed the management of this patient with the following physician: DVT ppx: Early ambulation Code status: Full code Anticipated discharge place: Home Anticipated discharge time: 24 to 48 hours Objective - Vital Signs Vital signs: Vital Signs Temp 98 F 02/15/25 16:22 Pulse 78 02/15/25 16:22 Resp 16 02/15/25 16:22 BP 114/72 02/15/25 16:22 Pulse Ox 99 02/15/25 16:22 FiO2 Intake & Output 02/14/25 02/15/25 02/15/25 18:59 06:59 18:59 Weight 68.039 kg 68 kg - Labs CBC & Chem 7: 02/15/25 05:32 02/15/25 05:32 Labs: Abnormal Lab Results - Last 24 Hours (Table) 02/14/25 02/14/25 02/14/25 Range/Units 21:51 21:51 21:51 RBC (4.10-5.20) 10*6/uL Hgb (12.0-15.0) g/dL Hct 35.9 L (37.2-46.3) % Eosinophils # (0.04-0.35) 10*3/uL APTT 20.1 L (22.0-30.0) sec Sodium 134 L (137-145) mmol/L BUN 20 H (7-17) mg/dL Creatinine (0.52-1.04) mg/dL Glucose 160 H (74-99) mg/dL POC Glucose (mg/dL) (70-110) mg/dL Plasma Lactic Acid Jose R (0.7-2.0) mmol/L Calcium (8.4-10.2) mg/dL Total Protein (6.3-8.2) g/dL Albumin (3.5-5.0) g/dL 02/14/25 02/14/25 02/15/25 Range/Units 21:51 22:46 01:34 RBC (4.10-5.20) 10*6/uL Hgb (12.0-15.0) g/dL Hct (37.2-46.3) % Eosinophils # (0.04-0.35) 10*3/uL APTT (22.0-30.0) sec Sodium (137-145) mmol/L BUN (7-17) mg/dL Creatinine (0.52-1.04) mg/dL Glucose (74-99) mg/dL POC Glucose (mg/dL) 132 H (70-110) mg/dL Plasma Lactic Acid Jose R 3.4 H* 0.6 L (0.7-2.0) mmol/L Calcium (8.4-10.2) mg/dL Total Protein (6.3-8.2) g/dL Albumin (3.5-5.0) g/dL 02/15/25 02/15/25 Range/Units 05:32 05:32 RBC 3.31 L (4.10-5.20) 10*6/uL Hgb 9.5 L D (12.0-15.0) g/dL Hct 28.5 L (37.2-46.3) % Eosinophils # 0.03 L (0.04-0.35) 10*3/uL APTT (22.0-30.0) sec Sodium 134 L (137-145) mmol/L BUN (7-17) mg/dL Creatinine 0.45 L (0.52-1.04) mg/dL Glucose 108 H (74-99) mg/dL POC Glucose (mg/dL) (70-110) mg/dL Plasma Lactic Acid Jose R (0.7-2.0) mmol/L Calcium 7.6 L (8.4-10.2) mg/dL Total Protein 5.4 L (6.3-8.2) g/dL Albumin 2.9 L (3.5-5.0) g/dL
[2025-02-16] MEDS: PEG 3350 (236 GM/BTL) + LYTES 4,000 ML BOTTLE PO ONE (04:50)
[2025-02-16] MEDS ORDERED: ASPIRIN-ACET-CAFF 250-250-65MG 1 EACH TAB PO PRN (08:23)
[2025-02-16 08:29] LABS: HCT 28.1 % (37.2-46.3); HGB 9.2 g/dL (12.0-15.0); MCH 28.6 pg (27.0-32.0); MCHC 32.7 g/dL (32.0-37.0); MCV 87.3 fL (80.0-97.0); Mean Platelet Volume 9.6 fL (9.5-12.2); Platelet Count 215 10*3/uL (140-440); RBC 3.22 10*6/uL (4.10-5.20); RDW 14.8 % (11.5-14.5); WBC 3.88 10*3/uL (4.50-10.00)
[2025-02-16] MEDS: LORATADINE 10 MG TAB PO SCH (08:36)
[2025-02-16 08:47] LABS: African American GFR (CKD) >90 (>60 ml/min/1.73 sqM); Anion Gap 3 mmol/L; Blood Urea Nitrogen 7 mg/dL (7-17); Calcium 8.2 mg/dL (8.4-10.2); Carbon Dioxide 24 mmol/L (22-30); Chloride 111 mmol/L (98-107); Glucose 95 mg/dL (74-99); Non-African American GFR(CKD) >90 (>60 ml/min/1.73 sqM); Potassium 4.1 mmol/L (3.5-5.1); Sodium 138 mmol/L (137-145)
[2025-02-16] MEDS: IV FLUID CONTINUATION 1,000 ML IV ONE (16:33)
[2025-02-16] MEDS ORDERED: LIDOCAINE 1% INJ 10MG/ML (20 ML MDV) ONE (16:34)
[2025-02-16] MEDS ORDERED: PROPOFOL 10 MG/ML 20 ML VIAL IV ONE (16:34)
--- NOTE | 2025-02-16 16:50 | P.PCN ---
Date of Procedure: 02/16/25 Procedure(s) Performed: BRIEF HISTORY: Patient is a 54-year-old pleasant white female admitted to hospital with acute lower GI bleed. She had multiple episodes of bright red blood per rectum that started yesterday morning. Hemoglobin initially was 12.5 g/dL and dropped to 9.2 g/dL. She is scheduled for colonoscopy to evaluate further. PROCEDURE PERFORMED: Colonoscopy with biopsy. PREOPERATIVE DIAGNOSIS: Acute lower GI bleed. IV sedation per Anesthesia. PROCEDURE: After informed consent was obtained, the patient, was brought into the endoscopy unit. IV sedation was administered by Anesthesia under continuous monitoring. Digital rectal examination was normal. Initially the Olympus CF-160 flexible video colonoscope was then inserted in the rectum, gradually advanced into the cecum without any difficulty. Careful examination was performed as the scope was gradually being withdrawn. Ileocecal valve and the appendiceal orifice were visualized and appeared normal. Prep was excellent. No active bleeding noted. Mucosa of the cecum, ascending colon, transverse colon, descending colon, sigmoid colon, and rectum appeared normal. The proximal rectum there was a 3 mm polyp that was removed by cold biopsy. Scattered left-sided diverticulosis seen. Retroflexion was performed in the rectum and no lesions were seen. The patient tolerated the procedure well. IMPRESSION: Scattered left-sided diverticulosis 3 mm proximal rectal polyp status post cold biopsy No active bleeding seen. RECOMMENDATIONS: Findings of this examination were discussed with the patient as well as her family. Patient likely had a diverticular bleed that has spontaneously resolved. Diet will be advanced as tolerated. If her hemoglobin remains stable tomorrow she can be discharged home.. She was advised to follow with the biopsy results. If the biopsy reveals adenoma she can have repeat colonoscopy in 5 years.
--- NOTE | 2025-02-16 16:54 | P.PN ---
Subjective Progress Note Date: 02/16/25 Hospital Course: A 54-year-old female with past medical history of chronic arthritis and uterine fibroids, who presented with blood-streaked bowel movements with blood clots that started on 02/14/2025 in the morning. Later in the day she states she had explosive diarrhea every 30 minutes consisting of bright red blood. Prior to this, she states she has been straining more frequently for the last 2 weeks, and the last 3 days having crampy generalized lower abdominal pain. She denies fever, nausea, vomiting, weakness or dizziness. No history of similar occurrences. She does states she takes naproxen 2 pills daily for the last 3 months for her arthritis. No history of diverticulitis or colitis. No blood thinners. No urinary symptoms. Denies alcohol use. Patient states she does have a history of fibroid ablation, however does not feel today's bleeding is vaginal in nature. Last period in August 2024. No other complaints at this time. Labs significant for hemoglobin 12.0, sodium 134, potassium 3.5, BUN 20, creatinine 0.62, glucose 160, lactic acid 3.4 CT abdomen/pelvis consistent with multiple uterine fibroids, largest cyst in the fundus. Diverticulosis without diverticulitis, no suspicious bowel abnormality. Malpositioned malrotated right kidney nonobstructive 0.5 cm left renal stone. Admitted initially as observation with GI consult in place. Patient's hemoglob in dropped from 12.0-9.5, GI plans colonoscopy on 02/16, patient was switched to inpatient due to acute blood loss anemia and need for colonoscopy. 02/15, no bowel movement since 02/14 9 PM. Denies any abdominal pain. [place] a little nauseous this morning 02/16 hemoglobin stable, complains of headache, plan for colonoscopy today, denies abdominal pain, no more bowel movements, started bowel prep Pertinent positives and negatives as discussed above, a complete review of systems was performed and all other systems are negative. Vitals Signs Reviewed. General: [nontoxic], [no distress], [appears at stated age] Derm: [warm], [dry] Head: [atraumatic], [normocephalic], [symmetric] Eyes: [EOMI], [no lid lag], [anicteric sclera] Mouth: [no lip lesion], [mucus membranes moist] Cardiovascular: [S1S2 reg], [no murmur] Lungs: [CTA bilateral], [no rhonchi, no rales] , [no accessory muscle use] Abdominal: [soft], [ nontender to palpation], [no guarding], [no appreciable organomegaly] Ext: [no gross muscle atrophy], [no edema], [no contractures] Neuro: [ CN II-XI grossly intact], [no focal neuro deficits] Psych: [Alert], [oriented], [appropriate affect] Assessment and Plan: Acute blood loss anemia secondary to lower GI bleed Lactic acidosis, resolved -GI consulted, appreciate recommendations - Continue to monitor CBC daily, transfuse for hemoglobin less than 7 - Continue IV hydration with NS at 130 cc/h - Continue Zofran as needed, IV Protonix 40 mg twice daily for GI prophylaxis - N.p.o. after midnight, plan for colonoscopy today Chronic arthritis - Holding NSAIDs Uterine fibroids - No recent vaginal bleeding I have reviewed the following hearing aid consultant notes: GI I have reviewed the results of the following tests: CBC and BMP I have ordered the following tests: CBC daily, monitor for worsening anemia I have discussed the care of this patient with the following independent histori an: RN I have independently interpreted the following test below: As above I have discussed the management of this patient with the following physician: DVT ppx: Early ambulation Code status: Full code Anticipated discharge place: Home Anticipated discharge time: 24 Objective - Vital Signs Vital signs: Vital Signs Temp 98.9 F 02/16/25 14:42 Pulse 89 02/16/25 14:42 Resp 17 02/16/25 04:00 BP 121/77 02/16/25 14:42 Pulse Ox 98 02/16/25 14:42 FiO2 Intake & Output 02/15/25 02/16/25 02/16/25 18:59 06:59 18:59 Intake Total 1300 Balance 1300 Weight 68 kg 68.5 kg Intake: IV 400 Intake, IV Titration 900 Amount Sodium Chloride 0.9% 1, 900 000 ml @ 130 mls/hr IV . Q7H42M [facility] Rx#:[id number] Other: Voiding Method Toilet # Voids 0 3 # Bowel Movements 8 - Labs CBC & Chem 7: 02/16/25 07:44 02/16/25 07:44 Labs: Abnormal Lab Results - Last 24 Hours (Table) 02/16/25 02/16/25 Range/Units 07:44 07:44 WBC 3.88 L (4.50-10.00) 10*3/uL RBC 3.22 L (4.10-5.20) 10*6/uL Hgb 9.2 L (12.0-15.0) g/dL Hct 28.1 L (37.2-46.3) % Chloride 111 H (98-107) mmol/L Creatinine 0.43 L (0.52-1.04) mg/dL Calcium 8.2 L (8.4-10.2) mg/dL
[2025-02-16 19:57] LABS: HCT 28.3 % (37.2-46.3); HGB 9.5 g/dL (12.0-15.0); MCHC 33.6 g/dL (32.0-37.0); MCV 86.3 fL (80.0-97.0); Mean Platelet Volume 9.8 fL (9.5-12.2); Platelet Count 224 10*3/uL (140-440); RBC 3.28 10*6/uL (4.10-5.20); RDW 14.7 % (11.5-14.5); WBC 6.19 10*3/uL (4.50-10.00)
[2025-02-17 07:43] VITALS: BP 117/74; PULSE 75; RESP 16; TEMP 97.8
[2025-02-17 08:15] LABS: HCT 26.9 % (37.2-46.3); HGB 8.7 g/dL (12.0-15.0); MCHC 32.3 g/dL (32.0-37.0); MCV 86.5 FL (80.0-97.0); Mean Platelet Volume 10.3 FL (9.5-12.2); NRBC Per 100 WBC 0 X 10*3/uL (0.00-0.01); Platelet Count 221 X 10*3/uL (140-440); RBC 3.11 X 10*6/uL (4.10-5.20); WBC 5.06 X 10*3/uL (4.50-10.00)
[2025-02-17 08:16] LABS: Basophils # (A) 0.05 X 10*3/uL (0.00-0.10); Lymphocytes # (A) 2.47 X 10*3/uL (0.90-5.00); Lymphocytes % (A) 48.8 %; Monocytes # (A) 0.44 X 10*3/uL (0.20-1.00); Monocytes % (A) 8.7 %; Neutrophils # (A) 1.89 X 10*3/uL (1.80-7.70); Neutrophils % (A) 37.3 %
--- NOTE | 2025-02-17 11:19 | P.PN ---
Subjective Progress Note Date: 02/17/25 Principal diagnosis: Rectal bleeding This a pleasant 54-year-old female with no significant past medical history other than anemia secondary to heavy periods who had presented to the emergency department yesterday evening with complaints of rectal bleeding. Patient states yesterday morning she had a small bowel movement with some maroon and dark- colored clots. She had no further bleeding throughout the day until she got home. Around 5 PM she states she felt the urge to have a bowel movement and when she went to the bathroom she had bright red blood per rectum. States that she had about 6 episodes about every 1/2 hour. She came to the emergency department around 8 PM and then had a another bloody bowel movement around 9 PM and nothing since then. She denies any abdominal pain she is having some nausea and was having some lightheadedness but no vomiting. States last week she was having some lower cramping but thought that was secondary to gas. States she has never had real regular bowel movements she does have some loose stools and at times constipation. She denies similar symptoms in the past. She had a Cologuard done at age 51 which was normal but has not had a colonoscopy in the past. She has not had any further bleeding. She did have a CAT scan of the abdomen and pelvis that showed multiple diverticuli without any evidence of diverticulitis and no suspicious bowel abnormality to account for blood within the bowel. She denies any fevers or chills. Hemoglobin on admission was 12.0 with a drop to 9.5 today. She denies any anticoagulation use. 02/17/2025 Patient seen and examined today as a follow-up. Yesterday she underwent colonoscopy with findings of no active bleeding, scattered left-sided diverticulosis, 3 mm proximal rectal polyp status post cold biopsy. Patient states she has not had any further bowel movements or bleeding throughout the night or this morning. Tolerated her liquid diet. No nausea or vomiting. Hemoglobin with slight drop to 8.7 from 9.5. Objective - Vital Signs Vital signs: Vital Signs Temp 97.7 F 02/17/25 02:01 Pulse 70 02/17/25 02:01 Resp 15 02/17/25 02:01 BP 131/64 02/17/25 02:01 Pulse Ox 99 02/17/25 02:01 FiO2 Intake & Output 02/16/25 02/16/25 02/17/25 06:59 18:59 06:59 Intake Total 1300 Balance 1300 Weight 68.5 kg Intake: IV 400 Intake, IV Titration 900 Amount Sodium Chloride 0.9% 1, 900 000 ml @ 130 mls/hr IV . Q7H42M [facility] Rx#:[id number] Other: Voiding Method Toilet Toilet # Voids 0 3 2 # Bowel Movements 8 - Exam General appearance: The patient is alert, oriented, appears in no acute distress. HET: Head is normocephalic and atraumatic. Conjunctiva pink. Sclera anicteric. Neck: Supple without lymphadenopathy. Abdomen: Soft, nontender, nondistended. Extremities: Normal skin color and turgor. No pedal edema Skin: No rashes, no jaundice Neurological: No focal deficits. Alert and oriented. - Labs CBC & Chem 7: 02/17/25 03:54 02/16/25 07:44 Labs: Abnormal Lab Results - Last 24 Hours (Table) 02/16/25 02/16/25 02/16/25 Range/Units 07:44 07:44 19:22 WBC 3.88 L (4.50-10.00) 10*3/uL RBC 3.22 L 3.28 L (4.10-5.20) 10*6/uL Hgb 9.2 L 9.5 L (12.0-15.0) g/dL Hct 28.1 L 28.3 L (37.2-46.3) % Chloride 111 H (98-107) mmol/L Creatinine 0.43 L (0.52-1.04) mg/dL Calcium 8.2 L (8.4-10.2) mg/dL Assessment and Plan (1) Hematochezia Narrative/Plan: 54-year-old female presenting with acute onset of painless rectal bleeding x 6-7 episodes yesterday. No previous history of GI bleed. No anticoagulation. CT evidence of multiple diverticuli without diverticulitis with normal colon. Likely dealing with a diverticular bleed. Patient's not had a prior colonoscopy did have a Cologuard at age 51 which was normal. Continue with observation, IV hydration and clear liquid diet. Monitor for further bleeding. Patient is status post colonoscopy with findings of left-sided scattered diverticulosis without any active bleeding and proximal rectal polyp status post biopsy. Rectal bleeding likely secondary to diverticular bleed now resolved. Current Visit: Yes Status: Acute Code(s): K92.1 - MELENA SNOMED Code(s): 594850985 (2) Rectal bleeding Current Visit: Yes Status: Acute Code(s): K62.5 - HEMORRHAGE OF ANUS AND RECTUM SNOMED Code(s): 58734674 (3) Acute blood loss anemia Current Visit: Yes Status: Acute Code(s): D62 - ACUTE POSTHEMORRHAGIC ANEMIA SNOMED Code(s): 199656676 Plan: 1. Continue symptomatic and supportive care 2. Patient may advance to regular diet 3. Protonix 40 mg daily for GI prophylaxis 4. Status post colonoscopy Thank you for this consultation, if patient tolerates advanced diet she is cleared from gastroenterology for discharge. Discussed with patient she may call office in 1 week for biopsy results with further recommendations. Dr. Stefan Lopez I agree with the dictator's note, documented as a scribe by Nilda Starr.
--- NOTE | 2025-02-17 12:31 | P.DS ---
Providers Date of admission: 02/14/25 23:34 Attending physician: Jairon Ocampo Consults: 02/14/25 23:49 Consult Physician Urgent Consulting Provider: Patrizia Lopez Consult Reason/Comments: GI bleed Do you want consulting provider notified?: Yes, Notify in am Primary care physician: Juan Saucedo [facility] Hospital Course: Discharge Diagnosis: Acute blood loss anemia secondary to diverticular bleed Rectal polyp status postbiopsy Diverticulosis Hospital Course: A 54-year-old female with past medical history of chronic arthritis and uterine fibroids, who presented with blood-streaked bowel movements with blood clots that started on 02/14/2025 in the morning. Later in the day she states she had explosive diarrhea every 30 minutes consisting of bright red blood. Prior to this, she states she has been straining more frequently for the last 2 weeks, and the last 3 days having crampy generalized lower abdominal pain. She denies fever, nausea, vomiting, weakness or dizziness. No history of similar occurrences. She does states she takes naproxen 2 pills daily for the last 3 months for her arthritis. No history of diverticulitis or colitis. No blood thinners. No urinary symptoms. Denies alcohol use. Patient states she does have a history of fibroid ablation, however does not feel today's bleeding is vaginal in nature. Last period in August 2024. No other complaints at this time. Labs significant for hemoglobin 12.0, sodium 134, potassium 3.5, BUN 20, creatinine 0.62, glucose 160, lactic acid 3.4 CT abdomen/pelvis consistent with multiple uterine fibroids, largest cyst in the fundus. Diverticulosis without diverticulitis, no suspicious bowel abnormality. Malpositioned malrotated right kidney nonobstructive 0.5 cm left renal stone. Admitted initially as observation with GI consult in place. Patient's hemoglobin dropped from 12.0-9.5, GI plans colonoscopy on 02/16, patient was switched to inpatient due to acute blood loss anemia and need for colonoscopy. Colonoscopy was performed on 02/16/2025, revealed scattered left-sided diverticulosis and 3 mm proximal rectal polyp, biopsy was performed,. Patient's blood count 8.7 at the time of discharge , stable, she reports no more bloody bowel movements since admission. Patient to follow-up with GI in 1 week for biopsy results, follow-up with primary care physician for repeat blood work. Recommended to avoid NSAIDs, discharged on Protonix 40 oral daily. Patient seen and examined at bedside. Vital signs reviewed and stable. General: [nontoxic], [no distress], [appears at stated age] Derm: [warm], [dry] Head: [atraumatic], [normocephalic], [symmetric] Eyes: [EOMI], [no lid lag], [anicteric sclera] Mouth: [no lip lesion], [mucus membranes moist] Cardiovascular: [S1S2 reg], [no murmur] Lungs: [CTA bilateral], [no rhonchi, no rales] , [no accessory muscle use] Abdominal: [soft], [ nontender to palpation], [no guarding], [no appreciable organomegaly] Ext: [no gross muscle atrophy], [no edema], [no contractures] Neuro: [ CN II-XI grossly intact], [no focal neuro deficits] Psych: [Alert], [oriented], [appropriate affect] A total of 40 minutes of time were spent preparing this complex discharge summar y. Patient was discharged on 02/17/2025. Patient Condition at Discharge: Fair Plan - Discharge Summary New Discharge Prescriptions: New Pantoprazole [Protonix] 40 mg PO DAILY #30 tab Discharge Medication List Pantoprazole [Protonix] 40 mg PO DAILY #30 tab 02/17/25 [Rx] Follow up Appointment(s)/Referral(s): Juan Crump MD [Primary Care Provider] - 1-2 days Patrizia Lopez MD [STAFF PHYSICIAN] - 1 Week (Call office for biopsy results) Patient Instructions/Handouts: Diverticulosis (DC), Diverticulitis Diet (DC) Activity/Diet/Wound Care/Special Instructions: Please, follow-up with your primary care physician and GI, recommend repeat blood work in 3 to 5 days Avoid Aleve, Motrin,Advil Discharge Disposition: HOME SELF-CARE
== END 2025-02-17 12:48 | disposition home or self-care (01) ==
LOC: EC 20:30 → 3SCARD 23:34 → INTOOBSV 23:34 → OBSVTOIN 23:34 → 6NMEDSUR 02-15 02:55 → 1SOBS 02-15 15:03 → 6NMEDSUR 02-16 18:00 → 1SOBS 02-16 18:07 → 6NMEDSUR 02-16 19:20 → UNDODISIN 02-17 12:48
PROVIDERS: ADMIT Student in an Organized Health Care Education/Training Program; ATTEND Student in an Organized Health Care Education/Training Program
PROC: 0DBP8ZX Excision of Rectum, Via Natural or Artificial Opening Endoscopic, Diagnostic (ICD-10-PCS; principal; 2025-02-16 07:45)
DX: K57.31 Diverticulosis of large intestine without perforation or abscess with bleeding (principal); D62 Acute posthemorrhagic anemia; E87.20 Acidosis, unspecified; K62.1 Rectal polyp; Q63.2 Ectopic kidney; N20.0 Calculus of kidney; D25.9 Leiomyoma of uterus, unspecified; M19.90 Unspecified osteoarthritis, unspecified site; Z79.1 Long term (current) use of non-steroidal anti-inflammatories (NSAID); Z88.0 Allergy status to penicillin
CPT/HCPCS: 96361 ×4; 96376 ×2; 96374; 96375; 99285; 36415; 86900; 86901; 88305; 80053 ×2; 80048; 83605 ×2; 85025 ×3; 85027; 85610; 85730; 86850; 88342; 88341; 74177; 45380; G0378 ×5; J2405; J2003; J2704; Q9967; J2470 ×3